=== PATIENT | female | born 1935 | race Caucasian/White ===

== ENCOUNTER 2017-07-31 15:41 | Emergency (ER) | payer OTHER, SELFPAY ==
[~2017-07-31] VITALS: Ht 157.5 cm; Wt 72.6 kg
[~2017-07-31 15:41] MED LIST: ASPI81CH PO; CLON1 PO; GABA300 PO; LISI20 PO; MORP15ER PO; OXYC5; SERT100 PO
[2017-07-31 17:26] LABS: BASOPHILS ABSOLUTE AUTO 0.03 K/mm3 (0.00-0.23); BASOPHILS PERCENT AUTO 0 % (0-2); EOSINOPHILS ABSOLUTE AUTO 0.09 K/mm3 (0.00-0.68); EOSINOPHILS PERCENT AUTO 1 % (0-6); Hematocrit 37.5 % (33.0-51.0); IMMATURE GRAN ABSOLUTE AUTO 0.02 K/mm3 (0.00-0.10); IMMATURE GRAN PERCENT AUTO 0 % (0-1); LYMPHOCYTES ABSOLUTE AUTO 1.16 K/mm3 (0.84-5.20); LYMPHOCYTES PERCENT AUTO 14 % (21-46); MONOCYTES ABSOLUTE AUTO 0.92 K/mm3 (0.16-1.47); MONOCYTES PERCENT AUTO 11 % (4-13); Mean Corpuscular HGB 27.9 pg (26.0-34.0); Mean Corpuscular Volume 87 fL (80-100); Mean Platelet Volume 10.2 fL (9.1-12.4); NEUTROPHILS ABSOLUTE AUTO 5.89 K/mm3 (1.96-9.15); NEUTROPHILS PERCENT AUTO 73 % (41-73); Platelet Count 265 K/mm3 (150-400); RDW Coefficient Variation 13.6 % (11.7-14.2); White Blood Cell Count 8.11 K/mm3 (4.00-11.30)
[2017-07-31] MEDS ORDERED: CLON2 PO (17:32)
[2017-07-31] MEDS ORDERED: ASPI325 PO (17:32)
[2017-07-31] MEDS ORDERED: GABA100 PO (17:34)
[2017-07-31] MEDS ORDERED: SERT100 PO (17:35)
[2017-07-31] MEDS ORDERED: CHOL10002 (17:37)
[2017-07-31 17:49] LABS: Alanine Aminotransfer (ALT/SGP 21 U/L (12-78); Albumin, Blood 3.7 g/dL (3.4-5.0); Albumin/Globulin Ratio 0.9 (0.8-1.8); Alk Phos 129 U/L (50-136); Anion Gap 9 mmol/L (6-16); Aspartate Aminotrans (AST/SGOT 15 U/L (12-37); Bilirubin, Total 0.3 mg/dL (0.1-1.0); Blood Urea Nitrogen 11 mg/dL (8-24); Bun/Creatinine Ratio 14.6 (12.0-20.0); CO2, Blood 26 mmol/L (21-32); Calcium, Blood 9.5 mg/dL (8.5-10.1); Chloride, Blood 101 mmol/L (98-108); Creatinine, Blood 0.76 mg/dL (0.40-1.00); Globulin, Blood 4.1 g/dL (2.2-4.0); Glomerular Filtration Rate >60 (60-); Glucose, Blood 115 mg/dL (70-99); Potassium, Blood 3.5 mmol/L (3.5-5.5); Sodium, Blood 136 mmol/L (136-145); Total Protein, Blood 7.8 g/dL (6.4-8.2)
[2017-07-31] MEDS ORDERED: ULTRA-LIGHT RO1 EACH XX (20:00)
== END 2017-07-31 20:50 | disposition home or self-care (01) ==
LOC: ER 15:41
PROVIDERS: Physician Assistant
DX: S82.031A Displaced transverse fracture of right patella, initial encounter for closed fracture (principal); I10 Essential (primary) hypertension; Z79.899 Other long term (current) drug therapy; Z79.82 Long term (current) use of aspirin; W19.XXXA Unspecified fall, initial encounter
CPT/HCPCS: 29505; 36415; 73560-RT; 80053; 83605; 85025; 85651; 86141; 93971; 99283

== ENCOUNTER 2019-08-23 06:18 | Day surgery (SDC) | payer OTHER ==
[~2019-08-23] VITALS: Ht 157.5 cm; Wt 79.5 kg
[~2019-08-23 06:18] MED LIST changes: +AMLO5 PO; +ASPI325 PO; +CHOL10002; +CLON2 PO; +GABA100 PO; +MS CONTIN15 MG PO; +Prednisone20 MG PO; +ULTRA-LIGHT RO1 EACH XX
--- NOTE | 2019-08-23 06:50 | NUR ---
08/23/19 0650 Tracey Jauregui NOTIFIED [facility] THAT ABOVE THE SURGICAL SITE THE PT HAS A LACERATION.
--- NOTE | 2019-08-23 07:33 | NUR ---
08/23/19 0733 Eliseo Mccall PT HAS LACERATION ON LEFT FOREARM. PER DR ROMAN BOSS TO PROCEED W/ SX.
== END 2019-08-23 08:27 | disposition home or self-care (01) ==
LOC: ORSCSDS 06:18
PROVIDERS: Orthopaedic Surgery
PROC: 01N50ZZ Release Median Nerve, Open Approach (ICD-10-PCS; principal; 2019-08-23 07:30)
DX: G56.02 Carpal tunnel syndrome, left upper limb (principal); I10 Essential (primary) hypertension; E78.5 Hyperlipidemia, unspecified; D69.6 Thrombocytopenia, unspecified; Z79.82 Long term (current) use of aspirin; Z79.899 Other long term (current) drug therapy
CPT/HCPCS: J0690; J2250; J2704; J3010; J7120

== ENCOUNTER → 2020-05-19 | Outpatient (CLI) | payer OTHER | END | disposition home or self-care (01) | LOC: PLD 13:47 → LAB SHORT 13:47 | DX: L57.0 Actinic keratosis (principal) | CPT/HCPCS: 88305; 88312 ==

== ENCOUNTER → 2020-10-22 | Outpatient (CLI) | payer OTHER ==
[2020-10-22 19:12] LABS: BASOPHILS ABSOLUTE AUTO 0.03 K/mm3 (0.00-0.23); BASOPHILS PERCENT AUTO 0 % (0-2); EOSINOPHILS ABSOLUTE AUTO 0.38 K/mm3 (0.00-0.68); EOSINOPHILS PERCENT AUTO 6 % (0-6); Hematocrit 32.4 % (33.0-51.0); Hemoglobin 10.3 g/dL (11.5-16.0); IMMATURE GRAN ABSOLUTE AUTO 0.04 K/mm3 (0.00-0.10); IMMATURE GRAN PERCENT AUTO 1 % (0-1); LYMPHOCYTES ABSOLUTE AUTO 1.33 K/mm3 (0.84-5.20); LYMPHOCYTES PERCENT AUTO 19 % (21-46); MONOCYTES ABSOLUTE AUTO 0.56 K/mm3 (0.16-1.47); MONOCYTES PERCENT AUTO 8 % (4-13); Mean Corpuscular HGB 28.5 pg (26.0-34.0); Mean Corpuscular HGB Conc 31.8 g/dL (31.5-36.5); Mean Corpuscular Volume 90 fL (80-100); NEUTROPHILS ABSOLUTE AUTO 4.54 K/mm3 (1.96-9.15); NEUTROPHILS PERCENT AUTO 66 % (41-73); Platelet Count 247 K/mm3 (150-400); RDW Coefficient Variation 13.4 % (11.7-14.2); RDW Standard Deviation 44.4 fL (35.1-46.3); Red Blood Cell Count 3.61 M/mm3 (3.80-5.20); White Blood Cell Count 6.88 K/mm3 (4.00-11.30)
[2020-10-22 22:21] LABS: Bun/Creatinine Ratio 28.7 (12.0-20.0); Calcium, Blood 9.2 mg/dL (8.5-10.1); Creatinine, Blood 1.29 mg/dL (0.40-1.00); Potassium, Blood 4.8 mmol/L (3.5-5.5)
== END | disposition home or self-care (01) ==
LOC: LAB SHORT 15:20 → LAB 15:20
PROVIDERS: Hospitalist
DX: I10 Essential (primary) hypertension (principal)
CPT/HCPCS: 80048; 85025

== ENCOUNTER → 2021-03-09 | Outpatient (CLI) | payer OTHER ==
[2021-03-09 15:31] LABS: Source, Urine Clean Catch
[2021-03-09 15:35] LABS: Appearance, Urine Hazy (Clear); Bilirubin, Urine Neg (Neg); Blood, Urine Neg (Neg); Color, Urine Yellow (P-Yellow); Glucose Qualitative, Urine Neg (Neg); Ketones, Urine Neg (Neg); Leukocyte Esterase, Urine Neg (Neg); Nitrite, Urine Neg (Neg); Protein, Urine Neg (Neg); Urobilinogen, Urine NORM (Normal)
[2021-03-09 15:57] LABS: Bacteria Rare /hpf; Red Blood Cells, Urine 0-2 /hpf (0-2); Squamous Epithelial Cells Rare /hpf (Few); White Blood Cells, Urine 0-2 /hpf (0-5)
== END | disposition home or self-care (01) ==
LOC: LAB SHORT 12:25
PROVIDERS: Internal Medicine
DX: R79.89 Other specified abnormal findings of blood chemistry (principal)
CPT/HCPCS: 81001

== ENCOUNTER → 2021-07-21 | Outpatient (CLI) | payer OTHER | END | disposition home or self-care (01) | LOC: LAB 10:15 → LAB SHORT 10:15 | DX: M35.3 Polymyalgia rheumatica (principal); I10 Essential (primary) hypertension | CPT/HCPCS: 83735; 85651 ==

== ENCOUNTER 2021-08-28 13:33 | Emergency (ER) | payer OTHER ==
[~2021-08-28] VITALS: Ht 157.5 cm; Wt 79.4 kg
[2021-08-28] MEDS ORDERED: CELE100 PO (15:12)
== END 2021-08-28 15:36 | disposition home or self-care (01) ==
LOC: ER 13:33
DX: S30.0XXA Contusion of lower back and pelvis, initial encounter (principal); W18.30XA Fall on same level, unspecified, initial encounter; I10 Essential (primary) hypertension; Z79.899 Other long term (current) drug therapy; Z79.82 Long term (current) use of aspirin; Z88.0 Allergy status to penicillin
CPT/HCPCS: 73502; 99283-25; A9270

== ENCOUNTER 2021-10-18 00:24 | Day surgery (SDC) | payer OTHER ==
[~2021-10-18 00:24] MED LIST changes: +CELE100 PO
== END 2021-10-18 15:25 | disposition home or self-care (01) ==
LOC: ATC 00:24
DX: T84.53XA Infection and inflammatory reaction due to internal right knee prosthesis, initial encounter (principal); Y83.8 Other surgical procedures as the cause of abnormal reaction of the patient, or of later complication, without mention of misadventure at the time of the procedure
CPT/HCPCS: 96365; J0878

== ENCOUNTER 2021-10-19 14:19 | Day surgery (SDC) | payer OTHER | END 2021-10-19 14:55 | disposition home or self-care (01) | LOC: ATC 14:19 | DX: T84.53XA Infection and inflammatory reaction due to internal right knee prosthesis, initial encounter (principal); M00.9 Pyogenic arthritis, unspecified; Y79.8 Miscellaneous orthopedic devices associated with adverse incidents, not elsewhere classified; I10 Essential (primary) hypertension; I25.10 Atherosclerotic heart disease of native coronary artery without angina pectoris; Z79.82 Long term (current) use of aspirin; Z79.899 Other long term (current) drug therapy | CPT/HCPCS: J0878 ==

== ENCOUNTER 2021-10-20 00:07 | Day surgery (SDC) | payer OTHER | END 2021-10-20 15:18 | disposition home or self-care (01) | LOC: ATC 00:07 | DX: T84.53XA Infection and inflammatory reaction due to internal right knee prosthesis, initial encounter (principal); M00.9 Pyogenic arthritis, unspecified; Y79.2 Prosthetic and other implants, materials and accessory orthopedic devices associated with adverse incidents; I25.10 Atherosclerotic heart disease of native coronary artery without angina pectoris; I10 Essential (primary) hypertension | CPT/HCPCS: 96365; J0878 ==

== ENCOUNTER 2021-10-21 06:20 | Day surgery (SDC) | payer OTHER ==
[2021-10-21 11:13] LABS: BASOPHILS ABSOLUTE AUTO 0.05 K/mm3 (0.00-0.23); BASOPHILS PERCENT AUTO 1 % (0-2); EOSINOPHILS ABSOLUTE AUTO 0.35 K/mm3 (0.00-0.68); EOSINOPHILS PERCENT AUTO 5 % (0-6); Hematocrit 24.3 % (33.0-51.0); Hemoglobin 7.6 g/dL (11.5-16.0); IMMATURE GRAN ABSOLUTE AUTO 0.03 K/mm3 (0.00-0.10); IMMATURE GRAN PERCENT AUTO 0 % (0-1); LYMPHOCYTES ABSOLUTE AUTO 1.13 K/mm3 (0.84-5.20); LYMPHOCYTES PERCENT AUTO 16 % (21-46); MONOCYTES PERCENT AUTO 8 % (4-13); Mean Corpuscular HGB 27.5 pg (26.0-34.0); Mean Corpuscular HGB Conc 31.3 g/dL (31.5-36.5); Mean Corpuscular Volume 88 fL (80-100); Mean Platelet Volume 10.6 fL (9.1-12.4); NEUTROPHILS ABSOLUTE AUTO 4.98 K/mm3 (1.96-9.15); NEUTROPHILS PERCENT AUTO 70 % (41-73); Platelet Count 278 K/mm3 (150-400); RDW Coefficient Variation 15.1 % (11.7-14.2); RDW Standard Deviation 48.3 fL (35.1-46.3); Red Blood Cell Count 2.76 M/mm3 (3.80-5.20); White Blood Cell Count 7.14 K/mm3 (4.00-11.30)
[2021-10-21 11:31] LABS: CPK Creatine Kinase 44 U/L (26-193)
[2021-10-21 11:36] LABS: Alanine Aminotransfer (ALT/SGP 12 U/L (12-78); Albumin, Blood 2.8 g/dL (3.4-5.0); Albumin/Globulin Ratio 0.7 (0.8-1.8); Alk Phos 129 U/L (50-136); Anion Gap 6 mmol/L (6-16); Aspartate Aminotrans (AST/SGOT 11 U/L (12-37); Bilirubin, Total 0.4 mg/dL (0.1-1.0); Blood Urea Nitrogen 23 mg/dL (8-24); Bun/Creatinine Ratio 24.4 (12.0-20.0); CO2, Blood 26 mmol/L (21-32); Calcium, Blood 8.7 mg/dL (8.5-10.1); Chloride, Blood 106 mmol/L (98-108); Creatine Kinase MB <1.0 ng/mL (0.0-3.6); Creatine Kinase MB Index Unable to Calculate (0.0-4.0); Creatinine, Blood 0.94 mg/dL (0.40-1.00); Globulin, Blood 3.8 g/dL (2.2-4.0); Glomerular Filtration Rate 60 (60-); Glucose, Blood 108 mg/dL (70-99); Potassium, Blood 4.3 mmol/L (3.5-5.5); Sodium, Blood 138 mmol/L (136-145); Total Protein, Blood 6.6 g/dL (6.4-8.2)
== END 2021-10-21 11:20 | disposition home or self-care (01) ==
LOC: ATC 06:20
PROVIDERS: Internal Medicine Infectious Disease
DX: T84.53XA Infection and inflammatory reaction due to internal right knee prosthesis, initial encounter (principal); Y79.2 Prosthetic and other implants, materials and accessory orthopedic devices associated with adverse incidents; I25.10 Atherosclerotic heart disease of native coronary artery without angina pectoris; I10 Essential (primary) hypertension
CPT/HCPCS: 80053; 82550; 82553; 85025; 86140; 96365; J0878

== ENCOUNTER 2021-10-22 00:18 | Day surgery (SDC) | payer OTHER | END 2021-10-22 10:40 | disposition home or self-care (01) | LOC: ATC 00:18 | DX: T84.53XA Infection and inflammatory reaction due to internal right knee prosthesis, initial encounter (principal); I25.10 Atherosclerotic heart disease of native coronary artery without angina pectoris; Z79.82 Long term (current) use of aspirin; I10 Essential (primary) hypertension | CPT/HCPCS: 96365; J0878 ==

== ENCOUNTER 2021-10-24 10:24 | Day surgery (SDC) | payer OTHER | END 2021-10-24 11:04 | disposition home or self-care (01) | LOC: ATC 10:24 | DX: T84.53XA Infection and inflammatory reaction due to internal right knee prosthesis, initial encounter (principal); I25.10 Atherosclerotic heart disease of native coronary artery without angina pectoris; Z79.82 Long term (current) use of aspirin; I10 Essential (primary) hypertension | CPT/HCPCS: J0878 ==

== ENCOUNTER 2021-10-25 09:52 | Day surgery (SDC) | payer OTHER | END 2021-10-25 10:28 | disposition home or self-care (01) | LOC: ATC 09:52 | DX: T84.53XA Infection and inflammatory reaction due to internal right knee prosthesis, initial encounter (principal); I25.10 Atherosclerotic heart disease of native coronary artery without angina pectoris; I10 Essential (primary) hypertension; Z79.82 Long term (current) use of aspirin | CPT/HCPCS: J0878 ==

== ENCOUNTER 2021-10-26 00:31 | Day surgery (SDC) | payer OTHER | END 2021-10-26 11:08 | disposition home or self-care (01) | LOC: ATC 00:31 | DX: T84.53XA Infection and inflammatory reaction due to internal right knee prosthesis, initial encounter (principal); I25.10 Atherosclerotic heart disease of native coronary artery without angina pectoris; Z79.82 Long term (current) use of aspirin; I10 Essential (primary) hypertension | CPT/HCPCS: 96365; J0878 ==

== ENCOUNTER 2021-10-27 01:45 | Day surgery (SDC) | payer OTHER ==
[2021-10-28] MEDS ORDERED: DAPTOMYCIN500 M3 IV (10:38)
== END 2021-10-27 13:54 | disposition home or self-care (01) ==
LOC: ATC 01:45
DX: T84.53XA Infection and inflammatory reaction due to internal right knee prosthesis, initial encounter (principal); I25.10 Atherosclerotic heart disease of native coronary artery without angina pectoris; I10 Essential (primary) hypertension; Z79.82 Long term (current) use of aspirin
CPT/HCPCS: 96365; J0878

== ENCOUNTER 2021-10-28 07:28 | Day surgery (SDC) | payer OTHER ==
[2021-10-28] MEDS ORDERED: DAPTOMYCIN500 M3 IV (10:38)
== END 2021-10-28 10:30 | disposition home or self-care (01) ==
LOC: ATC 07:28
DX: T84.53XA Infection and inflammatory reaction due to internal right knee prosthesis, initial encounter (principal); I25.10 Atherosclerotic heart disease of native coronary artery without angina pectoris; I10 Essential (primary) hypertension; Z79.82 Long term (current) use of aspirin
CPT/HCPCS: 96365; J0878

== ENCOUNTER 2021-10-29 01:50 | Day surgery (SDC) | payer OTHER ==
[~2021-10-29 01:50] MED LIST changes: +DAPTOMYCIN500 M3 IV
[2021-10-29 10:40] LABS: BASOPHILS ABSOLUTE AUTO 0.04 K/mm3 (0.00-0.23); BASOPHILS PERCENT AUTO 1 % (0-2); EOSINOPHILS ABSOLUTE AUTO 0.45 K/mm3 (0.00-0.68); EOSINOPHILS PERCENT AUTO 6 % (0-6); Hematocrit 22.7 % (33.0-51.0); Hemoglobin 7.2 g/dL (11.5-16.0); IMMATURE GRAN ABSOLUTE AUTO 0.03 K/mm3 (0.00-0.10); IMMATURE GRAN PERCENT AUTO 0 % (0-1); LYMPHOCYTES ABSOLUTE AUTO 0.73 K/mm3 (0.84-5.20); LYMPHOCYTES PERCENT AUTO 10 % (21-46); MONOCYTES ABSOLUTE AUTO 0.63 K/mm3 (0.16-1.47); MONOCYTES PERCENT AUTO 9 % (4-13); Mean Corpuscular HGB 27.6 pg (26.0-34.0); Mean Corpuscular HGB Conc 31.7 g/dL (31.5-36.5); Mean Corpuscular Volume 87 fL (80-100); Mean Platelet Volume 10.3 fL (9.1-12.4); NEUTROPHILS ABSOLUTE AUTO 5.37 K/mm3 (1.96-9.15); NEUTROPHILS PERCENT AUTO 74 % (41-73); Platelet Count 295 K/mm3 (150-400); RDW Coefficient Variation 14.8 % (11.7-14.2); RDW Standard Deviation 47.4 fL (35.1-46.3); Red Blood Cell Count 2.61 M/mm3 (3.80-5.20); White Blood Cell Count 7.25 K/mm3 (4.00-11.30)
[2021-10-29 11:11] LABS: Albumin, Blood 2.9 g/dL (3.4-5.0); Albumin/Globulin Ratio 0.8 (0.8-1.8); Bilirubin, Total 0.6 mg/dL (0.1-1.0); Bun/Creatinine Ratio 16.7 (12.0-20.0); C-REACTIVE PROTEIN, EXT RANGE 10.7 mg/dL (0.000-0.300); Creatinine, Blood 0.96 mg/dL (0.40-1.00); Globulin, Blood 3.8 g/dL (2.2-4.0); Potassium, Blood 4.4 mmol/L (3.5-5.5); Total Protein, Blood 6.7 g/dL (6.4-8.2)
--- NOTE | 2021-10-29 12:51 | NUR ---
LABS FAXED TO DR MANNING
== END 2021-10-29 11:05 | disposition home or self-care (01) ==
LOC: ATC 01:50
PROVIDERS: Internal Medicine Infectious Disease
DX: T84.53XA Infection and inflammatory reaction due to internal right knee prosthesis, initial encounter (principal); M00.9 Pyogenic arthritis, unspecified; Y79.8 Miscellaneous orthopedic devices associated with adverse incidents, not elsewhere classified; I10 Essential (primary) hypertension; I25.10 Atherosclerotic heart disease of native coronary artery without angina pectoris; Z79.82 Long term (current) use of aspirin; Z79.899 Other long term (current) drug therapy
CPT/HCPCS: 80053; 82550; 85025; 86140; 96365; J0878

== ENCOUNTER 2021-11-02 02:26 | Day surgery (SDC) | payer OTHER | END 2021-11-02 11:33 | disposition home or self-care (01) | LOC: ATC 02:26 | DX: T84.53XA Infection and inflammatory reaction due to internal right knee prosthesis, initial encounter (principal); M00.9 Pyogenic arthritis, unspecified; Y79.2 Prosthetic and other implants, materials and accessory orthopedic devices associated with adverse incidents; I25.10 Atherosclerotic heart disease of native coronary artery without angina pectoris; I10 Essential (primary) hypertension; Z79.82 Long term (current) use of aspirin | CPT/HCPCS: 82550; J0878 ==

== ENCOUNTER 2021-11-13 02:10 | Day surgery (SDC) | payer OTHER | END 2021-11-13 10:49 | disposition home or self-care (01) | LOC: ATC 02:10 | DX: T84.53XA Infection and inflammatory reaction due to internal right knee prosthesis, initial encounter (principal); I25.10 Atherosclerotic heart disease of native coronary artery without angina pectoris; I10 Essential (primary) hypertension; Z79.82 Long term (current) use of aspirin | CPT/HCPCS: 96365; J0878 ==

== ENCOUNTER 2021-11-14 02:10 | Day surgery (SDC) | payer OTHER | END 2021-11-14 10:55 | disposition home or self-care (01) | LOC: ATC 02:10 | DX: T84.53XA Infection and inflammatory reaction due to internal right knee prosthesis, initial encounter (principal) | CPT/HCPCS: 96365; J0878 ==

== ENCOUNTER 2021-11-15 02:17 | Day surgery (SDC) | payer OTHER | END 2021-11-15 10:45 | disposition home or self-care (01) | LOC: ATC 02:17 | DX: T84.53XA Infection and inflammatory reaction due to internal right knee prosthesis, initial encounter (principal); M00.9 Pyogenic arthritis, unspecified; I25.10 Atherosclerotic heart disease of native coronary artery without angina pectoris; I10 Essential (primary) hypertension; Y79.2 Prosthetic and other implants, materials and accessory orthopedic devices associated with adverse incidents | CPT/HCPCS: 96365; J0878 ==

== ENCOUNTER 2021-11-17 00:25 | Day surgery (SDC) | payer OTHER | END 2021-11-17 11:14 | disposition home or self-care (01) | LOC: ATC 00:25 | DX: T84.53XA Infection and inflammatory reaction due to internal right knee prosthesis, initial encounter (principal); I25.10 Atherosclerotic heart disease of native coronary artery without angina pectoris; I10 Essential (primary) hypertension; Z79.82 Long term (current) use of aspirin | CPT/HCPCS: J0878 ==

== ENCOUNTER 2021-11-19 00:12 | Day surgery (SDC) | payer OTHER | END 2021-11-19 10:38 | disposition home or self-care (01) | LOC: ATC 00:12 | DX: T84.53XA Infection and inflammatory reaction due to internal right knee prosthesis, initial encounter (principal); M00.9 Pyogenic arthritis, unspecified; I25.10 Atherosclerotic heart disease of native coronary artery without angina pectoris; I10 Essential (primary) hypertension; Y79.2 Prosthetic and other implants, materials and accessory orthopedic devices associated with adverse incidents; Z79.82 Long term (current) use of aspirin | CPT/HCPCS: J0878 ==

== ENCOUNTER 2021-11-20 02:56 | Day surgery (SDC) | payer OTHER | END 2021-11-20 10:46 | disposition home or self-care (01) | LOC: ATC 02:56 | DX: T84.53XA Infection and inflammatory reaction due to internal right knee prosthesis, initial encounter (principal); M00.9 Pyogenic arthritis, unspecified; I25.10 Atherosclerotic heart disease of native coronary artery without angina pectoris; I10 Essential (primary) hypertension; Y79.2 Prosthetic and other implants, materials and accessory orthopedic devices associated with adverse incidents; Z79.82 Long term (current) use of aspirin | CPT/HCPCS: J0878 ==

== ENCOUNTER 2021-11-21 00:57 | Day surgery (SDC) | payer OTHER | END 2021-11-21 10:48 | disposition home or self-care (01) | LOC: ATC 00:57 | DX: T84.53XA Infection and inflammatory reaction due to internal right knee prosthesis, initial encounter (principal); M00.9 Pyogenic arthritis, unspecified; I25.10 Atherosclerotic heart disease of native coronary artery without angina pectoris; I10 Essential (primary) hypertension; Y79.2 Prosthetic and other implants, materials and accessory orthopedic devices associated with adverse incidents; Z79.82 Long term (current) use of aspirin | CPT/HCPCS: J0878 ==

== ENCOUNTER 2021-11-22 00:16 | Day surgery (SDC) | payer OTHER | END 2021-11-22 10:34 | disposition home or self-care (01) | LOC: ATC 00:16 | DX: T84.53XA Infection and inflammatory reaction due to internal right knee prosthesis, initial encounter (principal); M00.9 Pyogenic arthritis, unspecified; I25.10 Atherosclerotic heart disease of native coronary artery without angina pectoris; I10 Essential (primary) hypertension; Y79.2 Prosthetic and other implants, materials and accessory orthopedic devices associated with adverse incidents; Z79.82 Long term (current) use of aspirin | CPT/HCPCS: J0878 ==

== ENCOUNTER 2021-11-23 01:26 | Day surgery (SDC) | payer OTHER | END 2021-11-23 11:09 | disposition home or self-care (01) | LOC: ATC 01:26 | DX: T84.53XA Infection and inflammatory reaction due to internal right knee prosthesis, initial encounter (principal); I25.10 Atherosclerotic heart disease of native coronary artery without angina pectoris; I10 Essential (primary) hypertension; Z79.82 Long term (current) use of aspirin | CPT/HCPCS: J0878 ==

== ENCOUNTER → 2022-05-20 | Outpatient (CLI) | payer OTHER ==
[2022-05-20 18:42] LABS: BASOPHILS ABSOLUTE AUTO 0.04 K/mm3 (0.00-0.23); BASOPHILS PERCENT AUTO 1 % (0-2); EOSINOPHILS ABSOLUTE AUTO 0.36 K/mm3 (0.00-0.68); EOSINOPHILS PERCENT AUTO 7 % (0-6); Hematocrit 27.2 % (33.0-51.0); Hemoglobin 8.5 g/dL (11.5-16.0); IMMATURE GRAN ABSOLUTE AUTO 0.01 K/mm3 (0.00-0.10); IMMATURE GRAN PERCENT AUTO 0 % (0-1); LYMPHOCYTES ABSOLUTE AUTO 0.67 K/mm3 (0.84-5.20); LYMPHOCYTES PERCENT AUTO 14 % (21-46); MONOCYTES PERCENT AUTO 10 % (4-13); Mean Corpuscular HGB 27.8 pg (26.0-34.0); Mean Corpuscular HGB Conc 31.3 g/dL (31.5-36.5); Mean Corpuscular Volume 89 fL (80-100); Mean Platelet Volume 10.9 fL (9.1-12.4); NEUTROPHILS ABSOLUTE AUTO 3.28 K/mm3 (1.96-9.15); NEUTROPHILS PERCENT AUTO 68 % (41-73); Platelet Count 240 K/mm3 (150-400); RDW Coefficient Variation 14.5 % (11.7-14.2); RDW Standard Deviation 47.1 fL (35.1-46.3); Red Blood Cell Count 3.06 M/mm3 (3.80-5.20); White Blood Cell Count 4.86 K/mm3 (4.00-11.30)
[2022-05-20 18:54] LABS: Albumin, Blood 3.2 g/dL (3.4-5.0); Bilirubin, Total 0.2 mg/dL (0.1-1.0); Calcium, Blood 8.5 mg/dL (8.5-10.1); Globulin, Blood 3.2 g/dL (2.2-4.0); Percent Saturation 10.9 % (15.0-50.0); Potassium, Blood 4.8 mmol/L (3.5-5.5); Total Protein, Blood 6.4 g/dL (6.4-8.2)
== END | disposition home or self-care (01) ==
LOC: LAB SHORT 14:15
PROVIDERS: Hospitalist
DX: I10 Essential (primary) hypertension (principal); D64.9 Anemia, unspecified
CPT/HCPCS: 80053; 82728; 83540; 83550; 85025

== ENCOUNTER → 2022-08-24 | Outpatient (CLI) | payer OTHER ==
[2022-08-24 19:04] LABS: BASOPHILS ABSOLUTE AUTO 0.05 K/mm3 (0.00-0.23); BASOPHILS PERCENT AUTO 1 % (0-2); EOSINOPHILS ABSOLUTE AUTO 0.24 K/mm3 (0.00-0.68); EOSINOPHILS PERCENT AUTO 5 % (0-6); Hematocrit 33.4 % (33.0-51.0); Hemoglobin 10.8 g/dL (11.5-16.0); IMMATURE GRAN ABSOLUTE AUTO 0.02 K/mm3 (0.00-0.10); IMMATURE GRAN PERCENT AUTO 0 % (0-1); LYMPHOCYTES ABSOLUTE AUTO 0.71 K/mm3 (0.84-5.20); LYMPHOCYTES PERCENT AUTO 15 % (21-46); MONOCYTES ABSOLUTE AUTO 0.47 K/mm3 (0.16-1.47); MONOCYTES PERCENT AUTO 10 % (4-13); Mean Corpuscular HGB 27.7 pg (26.0-34.0); Mean Corpuscular HGB Conc 32.3 g/dL (31.5-36.5); Mean Corpuscular Volume 86 fL (80-100); Mean Platelet Volume 11.4 fL (9.1-12.4); NEUTROPHILS ABSOLUTE AUTO 3.31 K/mm3 (1.96-9.15); NEUTROPHILS PERCENT AUTO 69 % (41-73); Platelet Count 205 K/mm3 (150-400); RDW Coefficient Variation 14.2 % (11.7-14.2); RDW Standard Deviation 43.8 fL (35.1-46.3)
== END | disposition home or self-care (01) ==
LOC: LAB SHORT 15:00 → LAB 15:00
PROVIDERS: Hospitalist
DX: D50.8 Other iron deficiency anemias (principal)
CPT/HCPCS: 82728; 83540; 83550; 85025

== ENCOUNTER → 2023-12-05 | Outpatient (CLI) | payer OTHER ==
[2023-12-05 19:30] LABS: BASOPHILS ABSOLUTE AUTO 0.06 K/mm3 (0.00-0.23); BASOPHILS PERCENT AUTO 1 % (0-2); EOSINOPHILS ABSOLUTE AUTO 0.45 K/mm3 (0.00-0.68); EOSINOPHILS PERCENT AUTO 8 % (0-6); Hematocrit 30.6 % (33.0-51.0); Hemoglobin 9.6 g/dL (11.5-16.0); IMMATURE GRAN ABSOLUTE AUTO 0.01 K/mm3 (0.00-0.10); IMMATURE GRAN PERCENT AUTO 0 % (0-1); LYMPHOCYTES ABSOLUTE AUTO 0.54 K/mm3 (0.84-5.20); LYMPHOCYTES PERCENT AUTO 10 % (21-46); MONOCYTES ABSOLUTE AUTO 0.47 K/mm3 (0.16-1.47); MONOCYTES PERCENT AUTO 9 % (4-13); Mean Corpuscular HGB 27.2 pg (26.0-34.0); Mean Corpuscular HGB Conc 31.4 g/dL (31.5-36.5); Mean Corpuscular Volume 87 fL (80-100); NEUTROPHILS ABSOLUTE AUTO 3.93 K/mm3 (1.96-9.15); NEUTROPHILS PERCENT AUTO 72 % (41-73); Platelet Count 274 K/mm3 (150-400); RDW Coefficient Variation 14.9 % (11.7-14.2); RDW Standard Deviation 47.4 fL (35.1-46.3); Red Blood Cell Count 3.53 M/mm3 (3.80-5.20); White Blood Cell Count 5.46 K/mm3 (4.00-11.30)
[2023-12-05 20:12] LABS: Bun/Creatinine Ratio 31.5 (12.0-20.0); Calcium, Blood 8.6 mg/dL (8.5-10.1); Creatinine, Blood 1.3 mg/dL (0.40-1.00)
== END ==
LOC: LAB SHORT 17:45 → LAB 17:45
PROVIDERS: Hospitalist
DX: N18.32 Chronic kidney disease, stage 3b (principal); D50.8 Other iron deficiency anemias
CPT/HCPCS: 80048; 82728; 83540; 83550; 85025

== ENCOUNTER → 2024-07-03 | Outpatient (CLI) | payer OTHER ==
[2024-07-03 14:38] LABS: BASOPHILS ABSOLUTE AUTO 0.03 K/mm3 (0.00-0.23); BASOPHILS PERCENT AUTO 1 % (0-2); EOSINOPHILS ABSOLUTE AUTO 0.18 K/mm3 (0.00-0.68); EOSINOPHILS PERCENT AUTO 3 % (0-6); Hematocrit 35.2 % (33.0-51.0); Hemoglobin 11.2 g/dL (11.5-16.0); IMMATURE GRAN ABSOLUTE AUTO 0.03 K/mm3 (0.00-0.10); IMMATURE GRAN PERCENT AUTO 1 % (0-1); LYMPHOCYTES ABSOLUTE AUTO 1.01 K/mm3 (0.84-5.20); LYMPHOCYTES PERCENT AUTO 18 % (21-46); MONOCYTES ABSOLUTE AUTO 0.51 K/mm3 (0.16-1.47); MONOCYTES PERCENT AUTO 9 % (4-13); Mean Corpuscular HGB Conc 31.8 g/dL (31.5-36.5); Mean Corpuscular Volume 91 fL (80-100); Mean Platelet Volume 11.2 fL (9.1-12.4); NEUTROPHILS ABSOLUTE AUTO 3.93 K/mm3 (1.96-9.15); NEUTROPHILS PERCENT AUTO 69 % (41-73); Platelet Count 210 K/mm3 (150-400); RDW Coefficient Variation 13.6 % (11.7-14.2); RDW Standard Deviation 45.3 fL (35.1-46.3); Red Blood Cell Count 3.86 M/mm3 (3.80-5.20); White Blood Cell Count 5.69 K/mm3 (4.00-11.30)
[2024-07-03 18:56] LABS: Percent Saturation 20.5 % (15.0-50.0)
[2024-07-03 19:08] LABS: Bun/Creatinine Ratio 27.5 (12.0-20.0); Calcium, Blood 9.2 mg/dL (8.5-10.1); Creatinine, Blood 1.09 mg/dL (0.40-1.00); Potassium, Blood 4.4 mmol/L (3.5-5.5)
== END ==
LOC: LAB 11:40 → LAB SHORT 11:40
PROVIDERS: Hospitalist
DX: D50.8 Other iron deficiency anemias (principal); I13.10 Hypertensive heart and chronic kidney disease without heart failure, with stage 1 through stage 4 chronic kidney disease, or unspecified chronic kidney disease
CPT/HCPCS: 80048; 82728; 83540; 83550; 85025